=== PATIENT | female | born 1985 | race Caucasian/White ===

== ENCOUNTER 2017-08-13 15:38 | Outpatient (CLI) | payer OTHER ==
[~2017-08-13] VITALS: Ht 160 cm; Wt 74.5 kg
[~2017-08-13 15:38] MED LIST: ENDOCET 5-3251 EACH PO; IBUPROFEN800 MG PO; PRENATAL TABLE1 EAC3 PO; ZOFRAN4 MG PO
[2017-08-13] MEDS ORDERED: MEBOLIC TABLET1 EACH PO (16:09)
[2017-08-13 16:20] VITALS: BP 116/80
== END 2017-08-13 16:50 | disposition home or self-care (01) ==
LOC: LDRP-OP 15:38 → 2WEST 15:40 → LDRP-OP 09-15 13:18
DX: O47.1 False labor at or after 37 completed weeks of gestation (principal); Z3A.39 39 weeks gestation of pregnancy
CPT/HCPCS: 59025; G0378

== ENCOUNTER 2017-08-16 17:28 | Inpatient (IN) | payer OTHER ==
[2017-08-16] VITALS (9 sets, daily range): BP systolic 106–124; BP diastolic 56–66
[~2017-08-16] VITALS: Ht 160 cm; Wt 74.5 kg
[~2017-08-16 17:28] MED LIST changes: +MEBOLIC TABLET1 EACH PO
[2017-08-16 18:55] LABS: EOSINOPHIL (%) 1.6 % (0-5); EOSINOPHIL COUNT 0.2 K/uL (0-0.3); HEMATOCRIT 36.3 % (36.0-46.0); IMMATURE GRANULOCYTE (%) 0.3 % (0.0-0.7); INSTRUMENT ABS NEUTROPHIL CT 7.8 K/uL; LYMPHOCYTE COUNT 1.8 K/uL (1.0-2.8); MCH 29.7 PG (29.0-34.0); MCHC 33.9 G/DL (30.0-36.0); MCV 87.7 FL (83-99); MONOCYTE (%) 5.4 % (3-12); MONOCYTE COUNT 0.6 K/uL (0-0.8); NEUTROPHIL (%) 75.5 % (45-76); NEUTROPHIL COUNT 7.8 K/uL (1.8-6.4); PLATELET COUNT 198 K/uL (156-360); RBC DIS.WIDTH-CV 12.9 % (11.8-14.6); RBC DIS.WIDTH-SD 41.4 % (39-53); RED BLOOD COUNT 4.14 M/uL (3.80-5.20); WHITE BLOOD COUNT 10.3 K/uL (4.1-10.2)
[2017-08-16] MEDS ORDERED: IBUPROFEN800 MG PO (20:05)
[2017-08-17 07:20] VITALS: BP 111/56
[2017-08-17 14:45] VITALS: BP 107/59
[2017-08-17 23:23] VITALS: BP 106/52
[2017-08-18 07:20] VITALS: BP 107/59
== END 2017-08-18 11:11 | disposition home or self-care (01) | DRG 775 ==
LOC: LDRP-OP 17:28 → 2WEST 17:30 → LDRP-OP 09-15 22:27
PROVIDERS: Midwife
PROC: 10E0XZZ Delivery of Products of Conception, External Approach (ICD-10-PCS; principal; 2017-08-16)
PROC: 10907ZC Drainage of Amniotic Fluid, Therapeutic from Products of Conception, Via Natural or Artificial Opening (ICD-10-PCS; 2017-08-16)
DX: O80 Encounter for full-term uncomplicated delivery (principal); Z37.0 Single live birth
CPT/HCPCS: 59025; 85025; G0378